=== PATIENT | female | born 1955 | race Caucasian/White ===

== ENCOUNTER → 2016-06-04 | Outpatient (CLI) | payer OTHER ==
[~2016-06-04] MED LIST: BACTRIM DS TAB1 EACH PO; ESTRACE1 MG PO; ESTRADIOL TOP; ESTRIOL TOP; MECLIZINE 25 MG25 M1 PO; PHENERGAN 25 MG25 M1 PO; PREMPRO 0.3 MG1 EACH; PROGESTERONE TOP; T3; T4; THYROID T; ZOFRAN 4 MG ORAL4 M1; [UNRECOGNIZED DRUG - OTHER] TOP
== END ==
LOC: ULTRA 12:44
DX: E04.1 Nontoxic single thyroid nodule (principal); E03.9 Hypothyroidism, unspecified